=== PATIENT | male | born 1995 | race Caucasian/White ===

== ENCOUNTER 2017-01-04 01:57 | Emergency (ER) | payer OTHER ==
[~2017-01-04] VITALS: Ht 177.8 cm; Wt 65.6 kg
[2017-01-04] MEDS ORDERED: LAMICTAL (02:01)
[2017-01-04] MEDS ORDERED: TOPIRAMATE (02:01)
[2017-01-04] MEDS ORDERED: CYPROHEPTADINE H4 M1 (02:02)
== END 2017-01-04 03:08 ==
LOC: EDMED 01:57 → EDBD 01:57 → EDMED 03:08
DX: G40.909 Epilepsy, unspecified, not intractable, without status epilepticus (principal); F17.210 Nicotine dependence, cigarettes, uncomplicated; Z79.899 Other long term (current) drug therapy